=== PATIENT | male | born 1980 | race Hispanic/Latino ===

== ENCOUNTER 2019-12-19 18:30 | Observation (INO) | payer OTHER ==
[~2019-12-19] VITALS: Ht 162.6 cm; Wt 111.1 kg
--- NOTE | 2019-12-19 18:57 | Emergency Department Note ---
History of Present Illnes History of Present Illness Chief Complaint: Extremity Trauma/Pain History of Present Illness This is a 39 year old male arrives to the ED with 2 week history of left-sided calf pain, patient was seen Dr. Gordon's office told he has a DVT and sent to the ER for admission. Chief Complaint Comment 2 WKS AGO WEDNESDAY BEGAN LEFT CALF PAIN. WENT TO [facility] AND HAD OUTPT VENOUS DOPPLER DONE AND DX DVT AND SENT TO ER. RECENT DX OF HTN, DM AND HIGH CHOL. PT AMBULATORY. AAOX4. +SMOKER NO HX DVT. Historian: Patient Arrival Mode: Car Onset (how long ago): week(s) Radiation: Reports non-radiation Severity: mild Onset quality: gradual Duration (how long): week(s) Timing of current episode: constant Progression: worsening Chronicity: new Context: Denies recent illness, Denies recent surgery, Denies recent immobiliza tion Relieving factors: none Exacerbating factors: none Past Medical/Family History Physician Review I have reviewed the patient's past medical and family history. Any updates have been documented here. Past Medical History Recent Fever: No Clinical Suspicion of Infectio: No New/Unexplained Change in Ment: No Past Medical History: Hypertension, Diabetes, Hyperlipedemia Past Surgical History: Cholecysctectomy Social History Physically hurt or threatened: No Review of Systems Review of Systems Constitutional: Reports no symptoms EENTM: Reports no symptoms Cardiovascular: Reports no symptoms Respiratory: Reports no symptoms Gastrointestinal: Reports no symptoms Genitourinary: Reports no symptoms Musculoskeletal: Reports as per HPI, Reports muscle pain, Reports muscle stiffness Integumentary: Reports no symptoms Neurological: Reports no symptoms Psychological: Reports no symptoms Endocrine: Reports no symptoms Hematological/Lymphatic: Reports no symptoms Physical Exam Related Data Allergies: Coded Allergies: No Known Allergies (Unverified , 12/19/19) Triage Vital Signs Vital Signs Date Time Temp Pulse Resp B/P (MAP) Pulse Ox O2 Delivery O2 Flow Rate FiO2 12/19/19 18:32 100.2 110 18 135/91 100 Room Air Vital signs reviewed: Yes Physical Exam CONSTITUTIONAL Constitutional: Present well-developed, Present well-nourished HENT HENT: Present normocephalic, Present atraumatic, Present oropharynx clear/moist, Present nose normal HENT L/R: Present left ext ear normal, Present right ext ear normal EYES Eyes: Reports PERRL, Reports conjunctivae normal NECK Neck: Present ROM normal PULMONARY Pulmonary: Present effort normal, Present breath sounds normal CARDIOVASCULAR Cardiovascular: Present regular rhythm, Present heart sounds normal, Present capillary refill normal, Present normal rate GASTROINTESTINAL Abdominal: Present soft, Present nontender, Present bowel sounds normal GENITOURINARY Genitourinary: Present exam deferred SKIN Skin: Present warm, Present dry MUSCULOSKELETAL Musculoskeletal: Present ROM normal, Present tenderness, Present swelling NEUROLOGICAL Neurological: Present alert, Present oriented x 3, Present no gross motor or sensory deficits PSYCHOLOGICAL Psychological: Present mood/affect normal, Present judgement normal Results Laboratory Lab results reviewed: Yes Laboratory comments Laboratory Tests Test 12/19/19 23:10 12/19/19 22:30 12/19/19 20:50 Bedside Glucose 293 mg/dL (70-120) White Blood Count 11.03 x10e3/uL (4.8-10.8) Red Blood Count 5.96 x10e6/uL (4.3-5.7) Hemoglobin 16.5 g/dL (14.0-18.0) Hematocrit 48.4 % (38.2-49.6) Mean Corpuscular Volume 81.2 fL (81-99) Mean Corpuscular Hemoglobin 27.7 pg (28-32) Mean Corpuscular Hemoglobin Concent 34.1 g/dL (31-35) Red Cell Distribution Width 12.6 % (11.7-14.4) Platelet Count 148 x10e3/uL (140-360) Neutrophils (%) (Auto) 72.1 % (38.7-80.0) Lymphocytes (%) (Auto) 18.6 % (18.0-39.1) Monocytes (%) (Auto) 7.2 % (4.4-11.3) Eosinophils (%) (Auto) 1.2 % (0.0-6.0) Basophils (%) (Auto) 0.3 % (0.0-1.0) Neutrophils # (Auto) 8.0 (2.1-6.9) Lymphocytes # (Auto) 2.1 (1.0-3.2) Monocytes # (Auto) 0.8 (0.2-0.8) Eosinophils # (Auto) 0.1 (0.0-0.4) Basophils # (Auto) 0.0 (0.0-0.1) Absolute Immature Granulocyte (auto 0.07 x10e3/uL (0-0.1) Prothrombin Time 12.9 seconds (11.9-14.5) Prothromb Time International Ratio 0.93 Sodium Level 135 mmol/L (136-145) Potassium Level 4.5 mmol/L (3.5-5.1) Chloride Level 102 mmol/L (98-107) Carbon Dioxide Level 20 mmol/L (22-29) Anion Gap 17.5 mmol/L (8-16) Blood Urea Nitrogen 17 mg/dL (7-26) Creatinine 0.95 mg/dL (0.72-1.25) Estimat Glomerular Filtration Rate > 60 ML/MIN (60-) BUN/Creatinine Ratio 18 (6-25) Glucose Level 307 mg/dL (74-118) Calcium Level 9.3 mg/dL (8.4-10.2) Total Bilirubin 0.8 mg/dL (0.2-1.2) Aspartate Amino Transf (AST/SGOT) 24 IU/L (5-34) Alanine Aminotransferase (ALT/SGPT) 23 IU/L (0-55) Alkaline Phosphatase 91 IU/L (40-150) Creatine Kinase 66 IU/L (30-200) Creatine Kinase MB 0.50 ng/mL (0-5.0) Troponin I < 0.001 ng/mL (0-0.300) Total Protein 7.9 g/dL (6.5-8.1) Albumin 3.9 g/dL (3.5-5.0) Globulin 4.0 g/dL (2.3-3.5) Albumin/Globulin Ratio 1.0 (0.8-2.0) Imaging Imaging results reviewed: Yes Assessment & Plan Medical Decision Making MDM 39-year-old male arrives to the ED with left lower extremity DVT, patient required hospital admission for further workup and monitoring. Patient given Zar[place]in the ED and admitted under Dr. Gordon's recommendation. Assessment & Plan Final Impression: (1) DVT (deep venous thrombosis) Depart Disposition: ADMITTED Last Vital Signs Date Time Temp Pulse Resp B/P (MAP) Pulse Ox O2 Delivery O2 Flow Rate FiO2 12/19/19 18:32 100.2 110 18 135/91 100 Room Air Medications in the ED Rivaroxaban 10 mg QD17 PO ; Start 8/12/20 at 17:00; Stop 12/27/19 at 16:59; Status UNV LAVERNE MARC DO Dec 19, 2019 18:57
[2019-12-19] MEDS ORDERED: RIVAROXABAN 10 MG TABLET PO SCH (19:15)
--- OUTSIDE RECORDS SUMMARY | 2019-12-19 20:47 | XMS REPORT | Clinical Summary ---
Author Author [facility] Organization [facility] [employer] Address Unknown Phone Unavailable Care Team Providers Care Steak Tenderizer Machine Name Role Phone Asked, No Pcp PCP Unavailable Allergies No Known Allergies Medications No known medications Active Problems Not on file Social History Date Tobacco Use Types Packs/Day Years Used Current Every Day Smoker Drinks/Week oz/Week Comments Alcohol Use Yes Sex Assigned at Date Recorded Not on file Industry Job Start Date Occupation Not on file Not on file Not on file Travel End Travel History Travel Start No recent travel history available. Last Filed Vital Signs Not on file Plan of Treatment Health Maintenance Due Date Last Done Comments INFLUENZA VACCINE 12/09/2019 Results Not on fileafter 12/18/2018 Insurance Type Payer Benefit Subscriber ID Effective Phone Address Plan / Dates Group HMO/PPO [facility] xxxxxxxxx 2015-P THCARE resent CHOICE/CHO ICE + Advance Directives For more information, please contact: [phone] Patient Senior Designer/Art Director Explanation Type Date Recorded Advance Directives, Living Will and Medical Power of Recreational Sports Director
--- OUTSIDE RECORDS SUMMARY | 2019-12-19 20:49 | XMS REPORT | Clinical Summary ---
Author Author [facility] Organization [employer] Address Unknown Phone Unavailable Care Team Providers Care Log Scaler Name Role Phone Asked, No Pcp PCP [...] Phone Address Plan / Dates Group HMO/PPO [facility] xxxxxxxxx 2015-P THCARE resent CHOICE/CHO ICE + Advance Directives For more information, please contact: [phone] Patient Cloth Weaver Explanation Type Date Recorded Advance Directives, Living Will and Medical Power of Pharmacy Operations Manager
[2019-12-19 21:17] LABS: BASOPHILS % 0.3 % (0.0-1.0); EOSINOPHILS # (AUTO) 0.1 (0.0-0.4); EOSINOPHILS % 1.2 % (0.0-6.0); HEMATOCRIT 48.4 % (38.2-49.6); HEMOGLOBIN 16.5 g/dL (14.0-18.0); LYMPHOCYTES # (AUTO) 2.1 (1.0-3.2); LYMPHOCYTES % 18.6 % (18.0-39.1); MEAN CORPUSCULAR HEMOGLOBIN 27.7 pg (28-32); MEAN CORPUSCULAR HGB CONC 34.1 g/dL (31-35); MEAN CORPUSCULAR VOLUME 81.2 fL (81-99); MONOCYTES # (AUTO) 0.8 (0.2-0.8); MONOCYTES % 7.2 % (4.4-11.3); NEUTROPHILS % 72.1 % (38.7-80.0); PLATELET COUNT 148 x10e3/uL (140-360); RED BLOOD COUNT 5.96 x10e6/uL (4.3-5.7); RED CELL DISTRIBUTION WIDTH 12.6 % (11.7-14.4)
[2019-12-19 21:19] LABS: CREATINE KINASE 66 IU/L (30-200)
[2019-12-19 21:21] LABS: INR 0.93; PROTHROMBIN TIME 12.9 seconds (11.9-14.5)
[2019-12-19 21:36] LABS: ALANINE AMINOTRANSFERASE 23 IU/L (0-55); ALBUMIN 3.9 g/dL (3.5-5.0); ALKALINE PHOSPHATASE 91 IU/L (40-150); ANION GAP 17.5 mmol/L (8-16); BLOOD UREA NITROGEN 17 mg/dL (7-26); BUN/CREATININE RATIO 18 (6-25); CALCIUM 9.3 mg/dL (8.4-10.2); CARBON DIOXIDE 20 mmol/L (22-29); CHLORIDE 102 mmol/L (98-107); CREATININE, SERUM 0.95 mg/dL (0.72-1.25); EST GLOMERULAR FILTRATION RATE > 60 ML/MIN (60-); GLUCOSE 307 mg/dL (74-118); POTASSIUM 4.5 mmol/L (3.5-5.1); SODIUM 135 mmol/L (136-145)
[2019-12-19 22:00] VITALS: BP 142/92
--- NOTE | 2019-12-19 22:05 | NUR ---
Pt placed in ED7. Pt is alert and oriented x4. On monitor pt is saturating at 99% on RA, ST on monitor at 98, BP slightly elevated 142/99. Pt stated he was just started on lisinopril po 10mg once a day and states he has not had his dose this evening. Pt did have a oral temp during triage of 100f but now is 98f. No other needs expressed. Pt awaiting transfer to floor.
[2019-12-19] MEDS ORDERED: DEXTROSE 50% SYRINGE 50 ML IV PRN (22:30)
--- NOTE | 2019-12-19 22:30 | NUR ---
Report called to Med/Surg RM 295 to Faisal. Pt remains alert and oriented x4, Vitals WNL, 20g to L upper arm remains clean/dry/intact/patent. Tech to place tele and to transfer pt via wheelchair.
[2019-12-19] MEDS ORDERED: IBUPROFEN 600 MG TAB PO PRN (23:00)
--- NOTE | 2019-12-19 23:48 | Diagnostic Imaging Report ---
EXAMINATION: CHEST SINGLE (NOT PORTABLE) INDICATION: ^Y ^DVT ^[id number] ^[id number] COMPARISON: None FINDINGS: AP view TUBES and LINES: None. LUNGS: Limited by body habitus and low lung volumes. There is no evidence of pneumonia or pulmonary edema. PLEURA: No pleural effusion or pneumothorax. HEART AND MEDIASTINUM: The cardiomediastinal silhouette is unremarkable. BONES AND SOFT TISSUES: No acute osseous lesion. Soft tissues are unremarkable. UPPER ABDOMEN: No free air under the diaphragm. IMPRESSION: No acute thoracic abnormality. Signed by: Dr. Juan A Mak MD on 12/19/2019 11:45 PM
[2019-12-20] VITALS (10 sets, daily range): BP systolic 109–188; BP diastolic 80–103
[2019-12-20] MEDS ORDERED: CLONIDINE HCL 0.1 MG TAB PO PRN (05:30)
[2019-12-20 06:09] LABS: BASOPHILS % 0.2 % (0.0-1.0); EOSINOPHILS # (AUTO) 0.3 (0.0-0.4); HEMATOCRIT 43.3 % (38.2-49.6); HEMOGLOBIN 14.6 g/dL (14.0-18.0); LYMPHOCYTES # (AUTO) 2.4 (1.0-3.2); LYMPHOCYTES % 26.1 % (18.0-39.1); MEAN CORPUSCULAR HEMOGLOBIN 27.8 pg (28-32); MEAN CORPUSCULAR HGB CONC 33.7 g/dL (31-35); MEAN CORPUSCULAR VOLUME 82.3 fL (81-99); MONOCYTES # (AUTO) 0.8 (0.2-0.8); MONOCYTES % 8.6 % (4.4-11.3); NEUTROPHILS # (AUTO) 5.7 (2.1-6.9); NEUTROPHILS % 61.3 % (38.7-80.0); PLATELET COUNT 136 x10e3/uL (140-360); RED BLOOD COUNT 5.26 x10e6/uL (4.3-5.7); RED CELL DISTRIBUTION WIDTH 12.6 % (11.7-14.4)
[2019-12-20 06:23] LABS: ALANINE AMINOTRANSFERASE 18 IU/L (0-55); ALBUMIN 3.3 g/dL (3.5-5.0); ALBUMIN/GLOBULIN RATIO 1.1 (0.8-2.0); ALKALINE PHOSPHATASE 81 IU/L (40-150); ANION GAP 11.6 mmol/L (8-16); BLOOD UREA NITROGEN 16 mg/dL (7-26); BUN/CREATININE RATIO 21 (6-25); CALCIUM 8.8 mg/dL (8.4-10.2); CARBON DIOXIDE 24 mmol/L (22-29); CHLORIDE 102 mmol/L (98-107); CREATININE, SERUM 0.78 mg/dL (0.72-1.25); EST GLOMERULAR FILTRATION RATE > 60 ML/MIN (60-); GLUCOSE 262 mg/dL (74-118); POTASSIUM 3.6 mmol/L (3.5-5.1); SODIUM 134 mmol/L (136-145)
[2019-12-20 06:52] LABS: CREATINE KINASE 56 IU/L (30-200)
[2019-12-20] MEDS: RIVAROXABAN 10 MG TABLET PO SCH ×2 (09:00→17:54)
[2019-12-20] MEDS: TRAMADOL HCL 50 MG TAB PO PRN (18:00)
[2019-12-20] MEDS: ACETAMINOPHEN 325 MG TAB PO PRN (18:00)
--- NOTE | 2019-12-20 19:05 | NUR ---
Patient visited in room during nursing rounds. Patient alert and oriented x3. Ambulatory in room prn. MICHELLE hose on left leg positive for DVT. Pt on scheduled Xarelto 15 mg BID. Pt on continuous pulse oximeter at bedside with O2 sat at 98% on room air. Call owens within reach. Will monitor closely.
[2019-12-20] MEDS ORDERED: LIPITOR20 MG PO (21:08)
[2019-12-20] MEDS ORDERED: JANUMET XR 50-1 EAC1 PO (21:08)
[2019-12-20] MEDS ORDERED: METOPROLOL TART25 MG PO (21:08)
[2019-12-20] MEDS ORDERED: LOSARTAN POTASS25 MG PO (21:08)
--- NOTE | 2019-12-20 21:10 | NUR ---
Spoke with Dr. Gordon and informed pt BS dianne is 252. ordered low dose Humalog sliding scale and ordered to continue home meds.
[2019-12-20] MEDS ORDERED: DEXTROSE 50% SYRINGE 50 ML IV PRN (21:15)
[2019-12-20] MEDS: INSULIN LISPRO 100 UNIT/1 ML 3ML VIAL SQ SCH (22:20)
[2019-12-21] VITALS: BP 122/84
[2019-12-21 04:00] VITALS: BP 118/83
--- NOTE | 2019-12-21 06:08 | Discharge Summary ---
DISCHARGE DIAGNOSIS: Left lower extremity deep vein thrombosis. HISTORY OF PRESENT ILLNESS AND HOSPITAL COURSE: The patient is a gentleman, who has not be seen for a few years in my office, who recently has been seen for left lower extremity pain, where Doppler as an outpatient showed a DVT of the left lower extremity. So, he was brought into the hospital, placed on Xarelto, which he tolerated well. No complications. So, he was discharged home on Xarelto medication. Discussions were made with the patient about overall treatment of three months. He needs to have follow up with me in 1 to 2 weeks and need to be compliant with his diabetes, hypertensive, and hyperlipidemia medications, which the patient states he will do. Please see hospital chart for full details. MD COLBY Lindquist/JACKY /[id number]
--- NOTE | 2019-12-21 06:15 | NUR ---
Patient aware he has discharge orders from Dr. Gordon this morning. Patient stated he plans to go home after eating breakfast. Patient states he will be leaving by himself and he has his car parked on the hospital parking lot. Will pass this information to dayshift nurse.
[2019-12-21] MEDS: TRAMADOL HCL 50 MG TAB PO PRN (06:20)
[2019-12-21] MEDS: ACETAMINOPHEN 325 MG TAB PO PRN (06:20)
[2019-12-21] MEDS: INSULIN LISPRO 100 UNIT/1 ML 3ML VIAL SQ SCH (07:30)
[2019-12-21 07:44] VITALS: BP 118/83
[2019-12-21 08:17] VITALS: BP 130/85
[2019-12-21 08:56] VITALS: BP 130/85
[2019-12-21] MEDS ORDERED: LOSARTAN POTASSIUM 25 MG TAB PO SCH (09:00)
[2019-12-21] MEDS ORDERED: ATORVASTATIN 20 MG TAB PO SCH (09:00)
[2019-12-21] MEDS ORDERED: METOPROLOL TARTRATE 25 MG TAB PO SCH (09:00)
[2019-12-21] MEDS ORDERED: NON-FORMULARY MEDICATION (Sitagliptin Phos/Metformin Hcl (Janumet Xr 50-1,000 Mg Tablet) 1 PO SCH (09:00)
[2019-12-21] MEDS: RIVAROXABAN 10 MG TABLET PO SCH (09:07)
== END 2019-12-21 09:24 | disposition home or self-care (01) ==
LOC: ER 18:44 → ERHOLD 20:47 → MED/SURG3 22:56
PROVIDERS: ADMIT Internal Medicine; ATTEND Internal Medicine
DX: I82.402 Acute embolism and thrombosis of unspecified deep veins of left lower extremity (principal); E78.5 Hyperlipidemia, unspecified; E11.9 Type 2 diabetes mellitus without complications; I10 Essential (primary) hypertension; E78.00 Pure hypercholesterolemia, unspecified; Z11.59 Encounter for screening for other viral diseases
CPT/HCPCS: 36415 ×3; 71045; 80053 ×2; 82550 ×2; 82553 ×2; 82948 ×3; 84484 ×2; 85025 ×2; 85610; 94660; 96372; 99284; G0378 ×3; U0002